=== PATIENT | male | born 2000 | race Caucasian/White ===

== ENCOUNTER 2022-12-05 21:24 | Emergency (ER) | payer SELFPAY ==
[~2022-12-05] VITALS: Ht 170.2 cm; Wt 63.5 kg
[2022-12-05 21:40] VITALS: BP 103/65
== END 2022-12-05 22:30 | disposition left against medical advice (07) ==
LOC: ER 21:24
DX: S06.9X9A Unspecified intracranial injury with loss of consciousness of unspecified duration, initial encounter (principal); Z53.21 Procedure and treatment not carried out due to patient leaving prior to being seen by health care provider; V18.0XXA Pedal cycle driver injured in noncollision transport accident in nontraffic accident, initial encounter
CPT/HCPCS: 99283